=== PATIENT | male | born 1950 | race Asian ===

== ENCOUNTER → 2024-01-01 17:08 | Outpatient (REF) | payer MEDICARE, BC, SELFPAY | LOC: PAVMRI 17:08 | PROVIDERS: ATTENDING PHYSICIAN Specialist; FAMILY PHYSICIAN Family Medicine | DX: G31.84 Mild cognitive impairment of uncertain or unknown etiology (principal) | CPT/HCPCS: 70551 ==

== ENCOUNTER 2024-04-11 06:24 | Day surgery (SDC) | payer MEDICARE, BC, SELFPAY ==
[2024-04-11 07:13] LABS: Glucose - Point of Care 191 mg/dl (70-99)
== END 2024-04-11 08:53 | disposition home or self-care (01) ==
LOC: GI 06:24
PROVIDERS: ATTENDING PHYSICIAN Internal Medicine
DX: Z12.11 Encounter for screening for malignant neoplasm of colon (principal); K57.30 Diverticulosis of large intestine without perforation or abscess without bleeding; D12.3 Benign neoplasm of transverse colon; K57.32 Diverticulitis of large intestine without perforation or abscess without bleeding; Z86.0101 Personal history of adenomatous and serrated colon polyps
CPT/HCPCS: 45380; 88305; 82962